=== PATIENT | male | born 1945 | race Caucasian/White ===

== ENCOUNTER → 2017-09-04 | Outpatient (CLI) | payer MEDICARE, BC ==
[2017-09-04 10:09] LABS: LDL CHOLESTEROL 77 mg/dl
== END ==
LOC: LAB 09:27
PROVIDERS: ATTEND Internal Medicine
DX: I25.10 Atherosclerotic heart disease of native coronary artery without angina pectoris (principal); E10.22 Type 1 diabetes mellitus with diabetic chronic kidney disease; N18.3 Chronic kidney disease, stage 3 (moderate); Z94.0 Kidney transplant status
CPT/HCPCS: 36415; 82040; 82247; 82310; 82374; 82435; 82465; 82565; 82947; 83718; 84075; 84132; 84155; 84295; 84443; 84450; 84460; 84478; 84520

== ENCOUNTER 2018-11-05 14:15 | Emergency (ER) | payer MEDICARE, BC ==
--- NOTE | 2018-11-05 14:24 | ER Report ---
History and Physical Time Seen By MD: 14:20 HPI/ROS CHIEF COMPLAINT: Weakness, fall HISTORY OF PRESENT ILLNESS: 73-year-old male patient presents to emergency room with complaint of weakness and fall. Patient states that he was seen by his card iologist today. He was referred to the emergency room with complaints of weakness. Patient states that he has had several months worth of history where he is just gotten progressively weak. He states he is having hard time getting up moving around. Patient states he did have a fall last week. He states that since then he's been having pain to the right upper leg and as well as the right ribs. Patient denies any shortness of breath, cough, fevers or chills. Patient states that he's just doesn't have the giving go that he wants had. Patient does have a history of kidney failure, with a kidney transplant as well as stents in the past. REVIEW OF SYSTEMS: Respiratory: No cough, no dyspnea. Cardiovascular: No chest pain, no palpitations. Gastrointestinal: No vomiting, no abdominal pain. Musculoskeletal: No back pain. Allergies: Coded Allergies: Penicillins (Verified Allergy, Intermediate, 11/05/18) Sulfa (Sulfonamide Antibiotics) (Verified Allergy, Mild, RASH, 11/05/18) Tetracyclines (Verified Allergy, Mild, RASH, 11/05/18) Home Meds Active Scripts Omeprazole (OMEPRAZOLE) 40 Mg Capsule., 40 MG PO QDAY, #30 CAP Prov:RAMON HO [facility] 11/05/18 Sucralfate (CARAFATE) 1 Gm Tablet, 1 GM PO QID, #60 TAB Take before meals and at bedtime. Crush the tablet and mix with water before taking. Prov:RAMON HO 11/05/18 Past Medical/Surgical History Patient has a past medical history of hypertension, congestive heart failure, fractures, diabetes. Patient has a surgical history of stents, kidney transplant. Reviewed Nurses Notes: Yes Constitutional Vital Sign - Last 24 Hours 11/05/18 11/05/18 11/05/18 11/05/18 14:20 14:23 14:30 14:45 Temp 98.8 Pulse 65 62 Resp 18 12 B/P (MAP) 159/70 159/70 (99) 142/66 (91) 145/69 (94) Pulse Ox 97 O2 Delivery Nasal Cannula 11/05/18 11/05/18 11/05/18 11/05/18 14:57 15:00 15:15 16:00 Pulse 63 64 Resp 16 B/P (MAP) 147/61 (89) 138/56 (83) Pulse Ox 99 98 O2 Flow Rate 2.0 11/05/18 11/05/18 11/05/18 11/05/18 16:30 17:00 18:45 18:54 Pulse 64 66 ??? B/P (MAP) 147/57 (87) Pulse Ox 97 98 11/05/18 19:15 Pulse ??? Physical Exam General Appearance: The patient is alert, has no immediate need for airway protection and no current signs of toxicity. Respiratory: Chest is non tender, lungs are clear to auscultation. Cardiac: regular rate and rhythm Gastrointestinal: Abdomen is soft and non tender, no masses, bowel sounds normal. Musculoskeletal: Neck: Neck is supple and non tender. Extremities have full range of motion and are non tender. Skin: No rashes or lesions. DIFFERENTIAL DIAGNOSIS: After history and physical exam differential diagnosis was considered for stroke, anemia, depression, urinary tract infection. Medical Decision Making Data Points Result Diagram: 11/05/18 1451 11/05/18 1451 Laboratory Hematology Test 11/05/18 14:51 White Blood Count 7.9 k/uL (4.5-11.0) Red Blood Count 3.46 M/uL (4.00-5.60) L Hemoglobin 10.0 g/dL (14.0-18.0) L Hematocrit 30.8 % (42.0-52.0) L Mean Corpuscular Volume 89.0 fL (80.0-96.0) Mean Corpuscular Hemoglobin 28.9 pg (26.0-33.0) Mean Corpuscular Hemoglobin Concent 32.5 g/dL (32.0-36.0) Red Cell Distribution Width 14.5 % (11.5-14.5) Platelet Count 206 K/uL (150-450) Mean Platelet Volume 7.4 fL (7.2-11.1) Neutrophils (%) (Auto) 81.5 % (39.4-72.5) H Lymphocytes (%) (Auto) 9.3 % (17.6-49.6) L Monocytes (%) (Auto) 8.4 % (4.1-12.4) Eosinophils (%) (Auto) 0.4 % (0.4-6.7) Basophils (%) (Auto) 0.4 % (0.3-1.4) Nucleated RBC Relative Count (auto) 0.0 /100WBC Neutrophils # (Auto) 6.4 K/uL (2.0-7.4) Lymphocytes # (Auto) 0.7 K/uL (1.3-3.6) L Monocytes # (Auto) 0.7 K/uL (0.3-1.0) Eosinophils # (Auto) 0.0 K/uL (0.0-0.5) Basophils # (Auto) 0.0 K/uL (0.0-0.1) Nucleated RBC Absolute Count (auto) 0.00 K/uL Chemistry Test 11/05/18 14:51 Sodium Level 134 mmol/L (137-145) Potassium Level 4.4 mmol/L (3.5-5.0) Chloride Level 101 mmol/L (98-107) Carbon Dioxide Level 25 mmol/L (22-30) Blood Urea Nitrogen 63 mg/dl (9-21) Creatinine 1.80 mg/dl (0.66-1.25) Glomerular Filtration Rate Calc 37.1 Random Glucose 242 mg/dl (75-110) Calcium Level 9.7 mg/dl (8.4-10.2) Total Bilirubin 0.4 mg/dl (0.2-1.3) Aspartate Amino Transf (AST/SGOT) 19 U/L (0-35) Alanine Aminotransferase (ALT/SGPT) 31 U/L (0-56) Alkaline Phosphatase 88 U/L (0-126) Total Protein 6.3 g/dl (6.3-8.2) Albumin 3.7 g/dl (3.5-5.0) Coagulation Test 11/05/18 14:51 Prothrombin Time 14.0 seconds (12.0-14.4) Prothromb Time International Ratio 1.07 Activated Partial Thromboplast Time 28 seconds (23-35) Urinalysis Test 11/05/18 17:06 Urine Color Straw Urine Clarity Clear Urine pH 5.0 pH (4.8-9.5) Urine Specific [place] 1.005 Urine Protein Negative mg/dL (NEGATIVE) Urine Glucose (UA) 50 mg/dL (NEGATIVE) Urine Ketones Negative mg/dL (NEGATIVE) Urine Blood Negative (NEGATIVE) Urine Nitrite Negative (NEGATIVE) Urine Bilirubin Negative (NEGATIVE) Urine Urobilinogen Negative mg/dL (0.2-1.9) Urine Leukocyte Esterase Negative (NEGATIVE) Urine RBC <1 /HPF (0-2/HPF) Urine WBC None /HPF (0-5/HPF) Urine Squamous Epithelial Cells Few /LPF (</=FEW) Urine Bacteria Negative /HPF (NONE-FEW) Urine Hyaline Casts Few /LPF (NONE-FEW) Urine Mucus None /HPF (NONE-FEW) EKG/Imaging Imaging TIBIA FIBULA RIGHT Indication: Fracture Comparison: 11/05/2018 Findings: Two views right tibia and fibula show an impacted angulated fracture of the proximal tibial metadiaphysis. There is presently 27 degrees of lateral angula tion of the fracture apex on the AP view and 35 degrees of dorsal angulation of the apex on the lateral view. There is also a nondisplaced fracture of the proximal fibula with robust osteophyte formation. Increased bony sclerosis is noted throughout the fracture plane involving the tibia as well.. IMPRESSION: Angulated impacted fracture of the proximal tibial metadiaphysis and nondisplaced fracture of the proximal fibula both with robust periosteal reaction. Recommend clinical correlation to evaluate for acuity and if indicated recommend CT scan for further evaluation. Report Dictated By: Seymour Lopez at 11/05/2018 5:27 PM Report E-Signed By: Seymour Lopez at 11/05/2018 5:31 PM CHEST PA LAT Indication: fall with pain Comparison: None. Findings: Lungs: Clear. Mediastinum/pulmonary vasculature: Heart size and pulmonary vasculature are normal. Bones/soft tissues: Normal. IMPRESSION: Clear lungs. Report Dictated By: Sidney Ghosh at 11/05/2018 4:08 PM Report E-Signed By: Sidney Ghosh at 11/05/2018 4:08 PM FEMUR RIGHT Indication: fall with pain Comparison: None. Findings: Right femur is intact. There is a fracture at the proximal tibia. Atherosclerotic changes are seen in the soft tissues. IMPRESSION: 1. No evidence of fracture in the right femur. 2. Impacted fracture in the proximal right tibia. Recommend dedicated plain films of the right tibia and fibula for further evaluation. Report Dictated By: Sidney Ghosh at 11/05/2018 4:07 PM Report E-Signed By: Sidney Ghosh at 11/05/2018 4:08 PM Study: CT scan of the brain without intravenous contrast. Indication: Weakness, fall Comparison study:None Technique: Multiple axial images were obtained through the brain without the use of intravenous contrast. One of the following dose optimization techniques was utilized in the performance of this exam: Automated exposure control; adjustment of the mA and/or kV according to the patient's size; or use of an iterative reconstructi on technique. Specific details can be referenced in the facility's radiology CT exam operational policy. The examination demonstrates no evidence of acute intracranial hemorrhage. There is no evidence of extra-axial collection or hydrocephalus. There is no abnormal density identified within the brain parenchyma. There is no evidence of disruption of the peripheral hernandez-white junction. The bony structures are unremarkable. IMPRESSION:Unremarkable CT scan of the brain without contrast. Report Dictated By: Cricket Shane at 11/05/2018 3:56 PM Report E-Signed By: Cricket Shane at 11/05/2018 4:07 PM RIBS RIGHT Indication: fall with pain Comparison: None. Findings: The right ribs are intact. Right lung is clear. IMPRESSION: No evidence of right rib fracture. Report Dictated By: Sidney Ghosh at 11/05/2018 4:06 PM Report E-Signed By: Sidney Ghosh at 11/05/2018 4:07 PM ED Course/Re-evaluation ED Course Patient was medicated exam room, history and physical were obtained. Differential diagnoses were considered. On examination patient does look pale, heart is regular, abdomen is soft nontender, lungs are clear. Patient does have tenderness to the right ribs as well as the right femur. X-ray of the right femur, right ribs, chest x-ray, CT scan of the head were done. A CBC, CMP, urinalysis were obtained. Patient had an elevated BUN of 68, creatinine was 1.8. Hemoglobin was 10 and hematocrit was 30.8. Imaging results showed no acute fractures, although there was a possible impacted fracture of the proximal tibia. Recommended a tibia and fibula series. X-rays are done. The x-rays seems to indicate a old fracture, as patient did fracture his leg proximally 6 years ago. I believe is likely the cause of the deformity of the leg. I discussed the case with Dr. Oziel, he felt that the patient was not able to go home that he would recommend admitting to the hospital some he would consult and prepared for colonoscopy. Patient was able to get up, ambulate without any difficulties. Patient did feel significantly better. We will go ahead and discharge him home at this time. He is to avoid NSAIDs, he is given prescription for omeprazole and Carafate. He is to follow-up Dr. Ludwig. Patient and family verbalized understanding and agreement with plan. Decision to Disposition Date: Nov 05, 2018 Decision to Disposition Time: 18:58 Depart Departure Latest Vital Signs Vital Signs Date Time Temp Pulse Resp B/P (MAP) Pulse Ox O2 Delivery O2 Flow Rate FiO2 11/05/18 19:15 ??? 11/05/18 18:54 147/57 (87) 11/05/18 17:00 98 11/05/18 15:15 16 11/05/18 14:57 2.0 11/05/18 14:20 98.8 Nasal Cannula Impression: Primary Impression: GI (gastrointestinal bleed) Additional Impression: Dehydration Condition: Improved Disposition: HOME OR SELF-CARE Referrals: BENITA LUDWIG [place] Omeprazole (OMEPRAZOLE) 40 Mg Capsule. 40 MG PO QDAY, #30 CAP Prov: RAMON HO 11/05/18 Sucralfate (CARAFATE) 1 Gm Tablet 1 GM PO QID, #60 TAB Take before meals and at bedtime. Crush the tablet and mix with water before taking. Prov: RAMON HO 11/05/18 Patient Instructions: Gastrointestinal Bleeding (ED) Additional Instructions: Increase fluid intake. Get plenty of rest. Follow up with Dr. Ludwig, call to make an appointment. Return to the ER if condition worsens. Take your medication as prescribed. Avoid Ibuprofen, Advil, Aleve, Naproxen or Motrin. Problem Qualifiers Primary Impression: GI (gastrointestinal bleed) GI bleed type/associated pathology: unspecified gastrointestinal hemorrhage type Qualified Codes: K92.2 - Gastrointestinal hemorrhage, unspecified RAMON HO Nov 05, 2018 14:24
[2018-11-05] MEDS ORDERED: NS(*) 0.9% 1000 ML BAG 1,000 ML IV ONE (14:30)
--- NOTE | 2018-11-05 14:47 | EKG ---
FACILITY: [facility] [place] PATIENT NAME: JAMIE ROSAS : [id number] MR: [id number] V: [id number] EXAM DATE: ORDERING PHYSICIAN: RAMON HO TECHNOLOGIST: Test Reason : Blood Pressure : / mmHG Vent. Rate : 065 BPM Atrial Rate : 065 BPM P-R Int : 204 ms QRS Dur : 124 ms QT Int : 434 ms P-R-T Axes : 030 -44 046 degrees QTc Int : 451 ms Normal sinus rhythm with sinus arrhythmia Indeterminate axis Anterior infarct , age undetermined Abnormal ECG No previous ECGs available Confirmed by SAMANTHA PHAM ([id number]) on 11/05/2018 4:51:09 PM Referred By: DUSTY Confirmed By:SAMANTHA PHAM
[2018-11-05 15:07] LABS: PLATELET COUNT, AUTOMATED 206 K/uL (150-450)
[2018-11-05 15:16] LABS: INR 1.07
--- NOTE | 2018-11-05 16:15 | RADIOLOGY IMAGING REPORT ---
FACILITY: [facility] - [place] PATIENT NAME: Roque Choi : 1945 MR: [id number] V: [id number] EXAM DATE: ORDERING PHYSICIAN: RAMON HO TECHNOLOGIST: Location: [facility] [place] Patient: Roque Choi : 1945 Visit/Account:[id number] Date of Sevice: 11/05/2018 Study: CT scan of the brain without intravenous contrast. Indication: Weakness, fall Comparison study:None Technique: Multiple axial images were obtained through the brain without the use of intravenous contr ast. One of the following dose optimization techniques was utilized in the performance of this exam: Autom ated exposure control; adjustment of the mA and/or kV according to the patient's size; or use of an i terative reconstruction technique. Specific details can be referenced in the facility's radiology C T exam operational policy. The examination demonstrates no evidence of acute intracranial hemorrhage. There is no evidence of ex tra-axial collection or hydrocephalus. There is no abnormal density identified within the brain parenchyma. There is no evidence of disruption of the peripheral hernandez-white junction. The bony structures are unremarkable. IMPRESSION:Unremarkable CT scan of the brain without contrast. Report Dictated By: Cricket Shane at 11/05/2018 3:56 PM Report E-Signed By: Cricket Shane at 11/05/2018 4:07 PM WSN:[email or web address]
--- NOTE | 2018-11-05 16:16 | RADIOLOGY IMAGING REPORT ---
FACILITY: [facility] PATIENT NAME: Roque Choi : 1945 MR: [id number] V: [id number] EXAM DATE: ORDERING PHYSICIAN: RAMON HO TECHNOLOGIST: Location: [facility] Patient: Roque Choi : 1945 Visit/Account:[id number] Date of Sevice: 11/05/2018 CHEST PA LAT Indication: fall with pain Comparison: None. Findings: Lungs: Clear. Mediastinum/pulmonary vasculature: Heart size and pulmonary vasculature are normal. Bones/soft tissues: Normal. IMPRESSION: Clear lungs. Report Dictated By: Sidney Ghosh at 11/05/2018 4:08 PM Report E-Signed By: Sidney Ghosh at 11/05/2018 4:08 PM WSN:[email or web address]
--- NOTE | 2018-11-05 16:16 | RADIOLOGY IMAGING REPORT ---
FACILITY: [facility] PATIENT NAME: Roque Choi : 1945 MR: [id number] V: [id number] EXAM DATE: ORDERING PHYSICIAN: RAMON HO TECHNOLOGIST: Location: [facility] [place] Patient: Roque Choi : 1945 Visit/Account:[id number] Date of Sevice: 11/05/2018 RIBS RIGHT Indication: fall with pain Comparison: None. Findings: The right ribs are intact. Right lung is clear. IMPRESSION: No evidence of right rib fracture. Report Dictated By: Sidney Ghosh at 11/05/2018 4:06 PM Report E-Signed By: Sidney Ghosh at 11/05/2018 4:07 PM WSN:[email or web address]
--- NOTE | 2018-11-05 16:17 | RADIOLOGY IMAGING REPORT ---
FACILITY: [facility] PATIENT NAME: Roque Choi : 1945 MR: [id number] V: [id number] EXAM DATE: ORDERING PHYSICIAN: RAMON HO TECHNOLOGIST: [place] [facility] [place] Patient: Roque Choi : 1945 Visit/Account:[id number] Date of Sevice: 11/05/2018 FEMUR RIGHT Indication: fall with pain Comparison: None. Findings: Right femur is intact. There is a fracture at the proximal tibia. Atherosclerotic changes are seen in the soft tissues. IMPRESSION: 1. No evidence of fracture in the right femur. 2. Impacted fracture in the proximal right tibia. Recommend dedicated plain films of the right tibi a and fibula for further evaluation. Report Dictated By: Sidney Ghosh at 11/05/2018 4:07 PM Report E-Signed By: Sidney Ghosh at 11/05/2018 4:08 PM WSN:[email or web address]
--- NOTE | 2018-11-05 17:39 | RADIOLOGY IMAGING REPORT ---
FACILITY: [facility] PATIENT NAME: Roque Choi : 1945 MR: [id number] V: [id number] EXAM DATE: ORDERING PHYSICIAN: RAMON HO TECHNOLOGIST: Location: [facility] Patient: Roque Choi : 1945 Visit/Account:[id number] Date of Sevice: 11/05/2018 TIBIA FIBULA RIGHT Indication: Fracture Comparison: 11/05/2018 Findings: Two views right tibia and fibula show an impacted angulated fracture of the proximal tibial metadiaph ysis. There is presently 27 degrees of lateral angulation of the fracture apex on the AP view and 35 degrees of dorsal angulation of the apex on the lateral view. There is also a nondisplaced fracture of the proximal fibula with robust osteophyte formation. Increased bony sclerosis is noted througho ut the fracture plane involving the tibia as well.. IMPRESSION: Angulated impacted fracture of the proximal tibial metadiaphysis and nondisplaced fracture of the pro ximal fibula both with robust periosteal reaction. Recommend clinical correlation to evaluate for ac uity and if indicated recommend CT scan for further evaluation. Report Dictated By: Seymour Lopez at 11/05/2018 5:27 PM Report E-Signed By: Seymour Lopez at 11/05/2018 5:31 PM WSN:[email or web address]
[2018-11-05 18:54] VITALS: BP 147/57
[2018-11-05] MEDS ORDERED: SUCR1TAB85 PO (19:02)
[2018-11-05] MEDS ORDERED: OMEP40CA48 PO (19:02)
== END 2018-11-05 19:09 | disposition home or self-care (01) ==
LOC: ER 14:24
DX: K92.2 Gastrointestinal hemorrhage, unspecified (principal); E86.0 Dehydration
CPT/HCPCS: 70450; 71046; 71100; 73552; 81001; 82274; 85025; 85610; 85730; 93005; 96360; 96361; 99284; J7030; 82040; 82247; 82310; 82374; 82435; 82565; 82947; 84075; 84132; 84155; 84295; 84450; 84460; 84520